=== PATIENT | female | born 1965 | race African-American/Black ===

== ENCOUNTER 2025-05-08 03:29 | Emergency (ER) | payer OTHER, SELFPAY ==
[2025-05-08] VITALS (44 sets, daily range): BP systolic 107–167; BP diastolic 59–93; PULSE 88–107; RESP 16–18; TEMP 36.9–37.4; O2SAT 86–98
--- NOTE | ~2025-05-08 | CT_ITS ---
EXAMINATION: CT abdomen pelvis w con DATE: 05/08/2025 04:36 INDICATION: Generalized abdominal pain. TECHNIQUE: Computed tomography (CT) of the abdomen and pelvis was performed with 100 mL Omnipaque 350 intravenous contrast. Automated exposure control and iterative reconstruction technique were employed. The dose-length product was 753.66 mGy-cm. COMPARISON: None. FINDINGS: The visualized portions of the lung bases demonstrate mild atelectasis. No pleural effusion. Cardiomegaly is noted. No pericardial effusion. There is a small sliding hiatal hernia. There is a 10 mm cyst in the liver. The spleen, pancreas, adrenal glands, and kidneys are normal. The uterus is enlarged with multiple fibroids measuring up to 6.9 cm. There is wall thickening of the sigmoid colon. There are scattered diverticula in the colon. There is fat stranding around the sigmoid colon with small focus of extraluminal gas. The appendix measures 9 mm in diameter. There is a wid[place]outh ventral hernia containing nonobstructed small bowel. There are no pathologically enlarged lymph nodes. There is a small volume of ascites. There is mild thoracic and lumbar spondylosis. IMPRESSION: 1. Sigmoid diverticulitis with microperforation. Malignancy is not excluded. 2. Small volume of ascites. 3. Ventral hernia containing nonobstructed small bowel. 4. Appendiceal diameter of 9 mm, which is indeterminate for appendicitis. 5. Small sliding hiatal hernia. 6. Uterine fibroids. Reviewed, dictated and finalized at location E.
--- OUTSIDE RECORDS SUMMARY | 2025-05-08 03:31 | XMS_ITS | Clinical Summary ---
Author Organization [facility] Address [address] [place] [address] Care Team Providers Care Stone Rubber Name Role Phone Unavailable Primary Care Provider Unavailabl e Social History Tobacco Use Types Packs/Day Years Used Date Smoking Tobacco: Never Assessed Comments Unknown Sex and Gender Information Value Date Recorded Sex Assigned at Not on file Legal Sex Female 1:19 AM PST Gender Identity Not on file Sexual Orientation Not on file Plan of Treatment Not on file
--- OUTSIDE RECORDS SUMMARY | 2025-05-08 03:31 | XMS_ITS | Encounter Summary ---
Author Organization [facility] - [facility] System Address [address] [place] [id number] Care Team Providers Care English Language Learner Teacher Name Role Phone Mariah Terry MD Primary Care Provider Della Asher NP Primary Care Provider [phone] Mariusz Reynoso NP Primary Care Provide r Efren Hargrove MD Primary Care Provider [phone] Encounter Details Date Type Department Care Team (Late st Contact Info) Description 03/20/2021 MyChart Message Enc [facility] Family & Internal Medicine [facility] [id number] [place] [phone] Mariah Terry MD [address] [place] [id number] RE: Test Results Social History Tobacco Use Types Packs/Day Years Used Date Smoking Tobacco: Never Smokeless Tobacco: Never Alcohol Use Standard Drinks/Week Comments Yes 0 (1 standard drink = 0.6 oz pur e alcohol) occasionall Comments No Sex and Gender Information Value Date Recorded Sex Assigned at Female 03/09/2023 4:22 PM CDT Legal Sex Female 4:47 PM CDT Gender Identity Female 06/08/2022 6:12 AM CDT Sexual Orientation Straight 03/09/2023 4: 22 PM CDT Occupation Industry Job Start Date Job End Date SELF EMPLOYED Not on file Not on file Not on file COVID-19 Exposure Response Date Recorded In the last month, have you been in contact with someone who was confirmed or suspected to have Coronavirus / COVID-19? No / Unsure 03/21/2021 2:52 PM CDT documented as of this encounter Plan of Treatment Not on file documented as of this encounter Visit Diagnoses Not on filedocumented in this encounter Care Teams English Language Learner Teacher Relationship Specialty Start Date End Date Mariah Terry MD PCP - General INTERNAL MEDICINE 07/18/18 11/19/22 [place] [address] [address], [address] [place] [phone] PCP - General Nurse Practitioner [facility] 11/20/2210/16 [place] [address] [address], [address] [place], [place] [id number] PCP - General NURSE PRACTITIONER [facility] 10/18/23 03/05/24 [place] [address] [place] [phone] PCP - General INTERNAL MEDICINE 03/06/24 documented as of this encounter
--- OUTSIDE RECORDS SUMMARY | 2025-05-08 03:31 | XMS_ITS | Encounter Summary ---
Author Organization [facility] Address [address] [place] [address] Care Team Providers Care Natural Resources Engineer Name Role Phone Unavailable Primary Care Provider Unavailabl e Prior Encounters Date Type Department Care Team Description 09/04/2019 Converted CPS Chart Documents [facility] [address] [place] [id number] <No scans attached> 09/04/2019 Converted 13x Documents [facility] [address] [place] [phone] <No scans attached> Plan of Treatment Not on file Procedures Procedure Name Priority Date/Time Associated Diagnosis Comments CANCELLED APPOINTMENT Routine 03/23/2017 2:00 AM CDT COMPREHENSIVE ORAL EVALUATION - NEW OR ESTABLISHED PATIENT Routine 02/23/2017 2:00 AM CDT PANORAMIC RADIOGRAPHIC IMAGE Routine 02/23/2017 2:00 AM CDT INTRAORAL - COMPREHENSIVE SERIES OF RADIOGRAPHIC IMAGES Routine 02/23/2017 2:00 AM CDT INTRAORAL PHOTO Routine 02/23/2017 2:00 AM CDT INTRAORAL PHOTO Routine 02/23/2017 2:00 AM CDT INTRAORAL PHOTO Routine 02/23/2017 2:00 AM CDT INTRAORAL PHOTO Routine 02/23/2017 2:00 AM CDT 9 MIDFL COMPOSITE FILLING Routine 2016 2:00 AM CDT 8 MIDFL COMPOSITE FILLING Routine 2016 2:00 AM CDT Visit Diagnoses Not on file
--- NOTE | 2025-05-08 03:39 | ED.ABDPAIN ---
HPI - Abdominal Pain General Chief Complaint: Abdominal Pain <Yemi Luu MD - Last Filed: 05/08/25 03:44> Stated Complaint: abdominal pain <Yemi Luu MD - Last Filed: 05/08/25 03:44> Time Seen by Provider: 05/08/25 03:35 <Yemi Luu MD - Last Filed: 05/08/25 03:44> Source: patient <Yemi Luu MD - Last Filed: 05/08/25 03:44> Mode of arrival: ambulatory <Yemi Luu MD - Last Filed: 05/08/25 03:44> Limitations: no limitations <Yemi Luu MD - Last Filed: 05/08/25 03:44> History of Present Illness HPI narrative: 60-year-old otherwise healthy here with the complaints of diffuse abdominal pain with started 3 days ago. Patient states that initially ibuprofen helped to ease the pain , since last night pain is quite intense , had diarrhea 3 days ago now abdomen is more bloated ,took gasx which made the pain worse . <Yemi Luu MD - Last Filed: 05/08/25 03:44> Onset (ago): day(s) (3) <Yemi Luu MD - Last Filed: 05/08/25 03:44> Pain Consistency: constant <Yemi Luu MD - Last Filed: 05/08/25 03:44> Location: diffuse <Yemi Luu MD - Last Filed: 05/08/25 03:44> Severity: severe <Yemi Luu MD - Last Filed: 05/08/25 03:44> Quality: cramping <MD Flavia Andrade Last Filed: 05/08/25 03:44> Radiation: none <MD Flavia Andrade Last Filed: 05/08/25 03:44> Migration to: no migration <MD Flavia Andrade Last Filed: 05/08/25 03:44> Exacerbating factors: nothing <MD Flavia Andrade Last Filed: 05/08/25 03:44> Relieving factors: nothing <Yemi Luu MD - Last Filed: 05/08/25 03:44> Associated symptoms: denies other symptoms <Yemi Luu MD - Last Filed: 05/08/25 03:44> Treatments prior to arrival: NSAIDs <Yemi Luu MD - Last Filed: 05/08/25 03:44> Related Data Home Medications: Home Medications ?Medication ?Instructions ?Recorded ?Confirmed ?Last Taken ?Type No Home Medications 05/08/25 05/08/25 Unknown History <Yemi Luu MD - Last Filed: 05/08/25 03:44> Allergies/Adverse Reactions: Allergies Allergy/AdvReac Type Severity Reaction Status Date / Time No Known Allergies Allergy Verified 05/08/25 03:40 <Yemi Luu MD - Last Filed: 05/08/25 03:44> Review of Systems Review of Systems: All systems reviewed & are unremarkable except as noted in HPI and below <Yemi Luu MD - Last Filed: 05/08/25 03:44> Constitutional: Constitutional: Reports no additional constitutional complaints <Yemi Luu MD - Last Filed: 05/08/25 03:44> Eyes: Eyes: Reports no additional eye complaints <Yemi Luu MD - Last Filed: 05/08/25 03:44> ENT: Reports system reviewed and no additional complaints, except as documented <Yemi Luu MD - Last Filed: 05/08/25 03:44> Cardiovascular: Cardiovascular: Reports no additional cardiovascular complaints <Yemi Luu MD - Last Filed: 05/08/25 03:44> Respiratory: Respiratory: Reports no additional respiratory complaints <Yemi Luu MD - Last Filed: 05/08/25 03:44> Gastrointestinal: Gastrointestinal: Reports as per HPI <Yemi Luu MD - Last Filed: 05/08/25 03:44> Genitourinary: Genitourinary: Reports no additional female genitourinary complaints <Yemi Luu MD - Last Filed: 05/08/25 03:44> Musculoskeletal: Musculoskeletal: Reports no additional musculoskeletal complaints <Yemi Luu MD - Last Filed: 05/08/25 03:44> Integumentary/Breasts: Skin/Breast: Reports system reviewed and no additional complaints, except as docu <Yemi Luu MD - Last Filed: 05/08/25 03:44> Neurologic: Reports system reviewed and no additional complaints, except as documented <Yemi Luu MD - Last Filed: 05/08/25 03:44> Psychiatric: Psychiatric: Reports no additional psychiatric complaints <Yemi Luu MD - Last Filed: 05/08/25 03:44> Exam Narrative: GENERAL: Well-appearing, well-nourished, and in no acute distress. HEAD: Normocephalic, atraumatic. EYES: PERRLA and EOMI. ENT: Nares clear, no rhinorrhea or epistaxis. Mucous membranes moist. NECK: Supple. CHEST: Clear to auscultation. No respiratory distress. HEART: Regular rate and rhythm. No murmur heard. Normal peripheral pulses. ABDOMEN: distended, diffuse tenderness EXTREMITIES: Normal range of motion. No edema. SKIN: Warm, dry, no rash. NEURO: No focal deficits. Alert and oriented x3. PSYCH: Normal mood and affect. <Yemi Luu MD - Last Filed: 05/08/25 03:44> Course Consultations Consultation #1: DR BRENNAN, HOSPITALIST AT [facility] WHO ACCEPTED PATIENT TRANSFER HER REQUESTED LACTIC ACID PRIOR TO DISCHARGE <Octavio Rothman MD - Last Filed: 05/08/25 09:15> Date: 05/08/25 <Octavio Rothman MD - Last Filed: 05/08/25 09:15> Vital Signs Vital signs: Vital Signs Temperature 36.9 C 05/08/25 03:30 Pulse Rate 88 05/08/25 03:30 Respiratory Rate 18 05/08/25 03:30 Blood Pressure 146/93 H 05/08/25 03:30 Pulse Oximetry 97 05/08/25 03:30 Oxygen Delivery Room Air 05/08/25 03:30 Temperature 36.9 C 05/08/25 06:00 Pulse Rate 103 H 05/08/25 07:00 Respiratory Rate 16 05/08/25 07:00 Blood Pressure 108/76 05/08/25 08:30 Pulse Oximetry 95 05/08/25 08:31 Oxygen Delivery Room Air 05/08/25 07:00 Oxygen Flow Rate 3 05/08/25 06:00 <Yemi Luu MD - Last Filed: 05/08/25 03:44> Vital Signs Temperature 36.9 C 05/08/25 03:30 Pulse Rate 88 05/08/25 03:30 Respiratory Rate 18 05/08/25 03:30 Blood Pressure 146/93 H 05/08/25 03:30 Pulse Oximetry 97 05/08/25 03:30 Oxygen Delivery Room Air 05/08/25 03:30 Temperature 36.9 C 05/08/25 06:00 Pulse Rate 103 H 05/08/25 07:00 Respiratory Rate 16 05/08/25 07:00 Blood Pressure 108/76 05/08/25 08:30 Pulse Oximetry 95 05/08/25 08:31 Oxygen Delivery Room Air 05/08/25 07:00 Oxygen Flow Rate 3 05/08/25 06:00 <Octavio Rothman MD - Last Filed: 05/08/25 09:15> MDM - Abdominal Pain Lab Data Result diagrams: 05/08/25 03:53 05/08/25 03:53 <Yemi Luu MD - Last Filed: 05/08/25 03:44> Labs: Lab Results 05/08/25 Range/Units 03:53 WBC 5.1 (4.8-10.8) K/mm3 RBC 5.00 (4.20-5.40) M/mm3 Hgb 10.2 L (12.0-15.0) g/dL Hct 35.8 (35.0-49.0) % MCV 71.6 L (78.0-102.0) fL MCH 20.4 L (27.0-31.0) pg MCHC 28.5 L (32-36) g/dL RDW 19.5 H (11.6-14.4) % Plt Count 227 (150-420) K/mm3 MPV Not Reportable Immature Gran % (Auto) Not Reportable Neut % (Auto) Not Reportable Lymph % (Auto) Not Reportable [place] % (Auto) Not Reportable Eos % (Auto) Not Reportable Baso % (Auto) Not Reportable Lymph # (Auto) Not Reportable [place] # (Auto) Not Reportable Eos # (Auto) Not Reportable Baso # (Auto) Not Reportable Abs Immat Gran (auto) Not Reportable Absolute Neuts (auto) Not Reportable Absolute Nucleated RBC Not Reportable Neutrophils % (Manual) 75 H (46-73) % Band Neutrophils % 0 (0-6) % Lymphocytes % (Manual) 20 (18-44) % Monocytes % (Manual) 4 (3-9) % Eosinophils % (Manual) 1 (1-6) % Basophils % (Manual) 0 (0-1) % Nucleated RBC % Not Reportable Abs Neuts (Manual) 3.82 (1.3-6.7) K/mm3 Abs Lymphs (Manual) 1.02 L (1.1-4.5) K/mm3 Abs Monocytes (Manual) 0.20 (0.1-0.90) K/mm3 Absolute Eos (Manual) 0.05 (0.02-0.50) K/mm3 Abs Basophils (Manual) 0.00 (0-0.1) K/mm3 Platelet Estimate Adequate (Adequate) % Immature Plt Fraction 6.9 (1.0-7.0) % Schistocytes Not Reportable PT 14.0 H (9.50-12.1) Seconds INR 1.3 Sodium 139 (137-145) mmol/L Potassium 3.4 (3.4-5.0) mmol/L Chloride 102 (98-107) mmol/L Carbon Dioxide 26 (22-30) mmol/L Anion Gap 11 (4-12) mmol/L BUN 7 (7-17) mg/dL Creatinine 0.71 (0.7-1.0) mg/dL Estim Creat Clear Calc 84 ml/min Estimated GFR > 60 (59 - ) Glucose 125 H (65-110) mg/dL Calculated Osmolality 287 (285-295) mOsm/kg Lactic Acid 1.5 (0.4-2.0) mmol/L Calcium 9.3 (8.4-10.2) mg/dL Total Bilirubin 0.9 (0.2-1.3) mg/dL AST 23 (14-36) U/L ALT 11 (6-35) U/L Alkaline Phosphatase 71 (38-126) U/L Total Protein 9.5 H (6.3-8.2) g/dL Albumin 4.3 (3.5-5.1) g/dL Lipase 28 (23-300) U/L <Yemi Luu MD - Last Filed: 05/08/25 03:44> Lab Results 05/08/25 Range/Units 03:53 WBC 5.1 (4.8-10.8) K/mm3 RBC 5.00 (4.20-5.40) M/mm3 Hgb 10.2 L (12.0-15.0) g/dL Hct 35.8 (35.0-49.0) % MCV 71.6 L (78.0-102.0) fL MCH 20.4 L (27.0-31.0) pg MCHC 28.5 L (32-36) g/dL RDW 19.5 H (11.6-14.4) % Plt Count 227 (150-420) K/mm3 MPV Not Reportable Immature Gran % (Auto) Not Reportable Neut % (Auto) Not Reportable Lymph % (Auto) Not Reportable [place] % (Auto) Not Reportable Eos % (Auto) Not Reportable Baso % (Auto) Not Reportable Lymph # (Auto) Not Reportable [place] # (Auto) Not Reportable Eos # (Auto) Not Reportable Baso # (Auto) Not Reportable Abs Immat Gran (auto) Not Reportable Absolute Neuts (auto) Not Reportable Absolute Nucleated RBC Not Reportable Neutrophils % (Manual) 75 H (46-73) % Band Neutrophils % 0 (0-6) % Lymphocytes % (Manual) 20 (18-44) % Monocytes % (Manual) 4 (3-9) % Eosinophils % (Manual) 1 (1-6) % Basophils % (Manual) 0 (0-1) % Nucleated RBC % Not Reportable Abs Neuts (Manual) 3.82 (1.3-6.7) K/mm3 Abs Lymphs (Manual) 1.02 L (1.1-4.5) K/mm3 Abs Monocytes (Manual) 0.20 (0.1-0.90) K/mm3 Absolute Eos (Manual) 0.05 (0.02-0.50) K/mm3 Abs Basophils (Manual) 0.00 (0-0.1) K/mm3 Platelet Estimate Adequate (Adequate) % Immature Plt Fraction 6.9 (1.0-7.0) % Schistocytes Not Reportable PT 14.0 H (9.50-12.1) Seconds INR 1.3 Sodium 139 (137-145) mmol/L Potassium 3.4 (3.4-5.0) mmol/L Chloride 102 (98-107) mmol/L Carbon Dioxide 26 (22-30) mmol/L Anion Gap 11 (4-12) mmol/L BUN 7 (7-17) mg/dL Creatinine 0.71 (0.7-1.0) mg/dL Estim Creat Clear Calc 84 ml/min Estimated GFR > 60 (59 - ) Glucose 125 H (65-110) mg/dL Calculated Osmolality 287 (285-295) mOsm/kg Lactic Acid 1.5 (0.4-2.0) mmol/L Calcium 9.3 (8.4-10.2) mg/dL Total Bilirubin 0.9 (0.2-1.3) mg/dL AST 23 (14-36) U/L ALT 11 (6-35) U/L Alkaline Phosphatase 71 (38-126) U/L Total Protein 9.5 H (6.3-8.2) g/dL Albumin 4.3 (3.5-5.1) g/dL Lipase 28 (23-300) U/L <Octavio Rothman MD - Last Filed: 05/08/25 09:15> Imaging Data Radiologist's impression: ITS Impressions Abdomen/Pelvis CT 05/08/25 09:02 IMPRESSION: 1. Sigmoid diverticulitis with microperforation. Malignancy is not excluded. 2. Small volume of ascites. 3. Ventral hernia containing nonobstructed small bowel. 4. Appendiceal diameter of 9 mm, which is indeterminate for appendicitis. 5. Small sliding hiatal hernia. 6. Uterine fibroids. <Yemi Luu MD - Last Filed: 05/08/25 03:44> ITS Impressions Abdomen/Pelvis CT 05/08/25 09:02 IMPRESSION: 1. Sigmoid diverticulitis with microperforation. Malignancy is not excluded. 2. Small volume of ascites. 3. Ventral hernia containing nonobstructed small bowel. 4. Appendiceal diameter of 9 mm, which is indeterminate for appendicitis. 5. Small sliding hiatal hernia. 6. Uterine fibroids. PARAESOPHAGEAL HERNIA CONTAINING THE PROXIMAL PORTION OF THE STOMACH. SMALL NO FREE FLUID IS SEEN ADJACENT TO THE LIVER HEPATOMEGALY AND HEPATIC STEATOSIS ENLARGEMENT OF THE UTERUS WITH MULTIPLE LIKELY UTERINE FIBROIDS. MASSLIKE WALL THICKENING OF THE SIGMOID COLON WITH FOCI OF EXTRALUMINAL AIR IS SEEN ALONG THE ANTERIOR MARGIN WITH A LOCAL MICROPERFORATION WITHOUT EVIDENCE OF ABSCESS. UNCLEAR IF THIS REPRESENTS A MALIGNANCY VERSUS ACUTE DIVERTICULITIS. ENLARGEMENT OF THE DISTAL APPENDIX MEASURING 9.8 MM ACUTE APPENDICITIS IS NOT EXCLUDED FLUID-FILLED MILDLY DISTAL LOOPS OF SMALL BOWEL ARE SEEN WITHIN THE LEFT ABDOMEN WITHOUT DEFINITE OBSTRUCTION <Octavio Rothman MD - Last Filed: 05/08/25 09:15> Discharge Plan Discharge Clinical Impression: Acute appendicitis, Diverticulitis of colon with perforation <Yemi Luu MD - Last Filed: 05/08/25 03:44> Patient Disposition: Acute Care Hospital <Yemi Luu MD - Last Filed: 05/08/25 03:44> Condition: Stable <Yemi Luu MD - Last Filed: 05/08/25 03:44> Patient Language: Martiniquais <Yemi Luu MD - Last Filed: 05/08/25 03:44> Prescriptions: No Action No Home Medications <Yemi Luu MD - Last Filed: 05/08/25 03:44> Follow-up/Referrals: UNKNOWN,DOCTOR [Primary Care Provider] <Yemi Luu MD - Last Filed: 05/08/25 03:44>
[2025-05-08] MEDS: SODIUM CHLORIDE 0.9% IV 1,000 ML 150 ML IV CONT (03:54)
[2025-05-08] MEDS: ONDANSETRON INJ 4 MG/2 ML VIAL IV PUSH ×2 (03:55→08:18)
[2025-05-08] MEDS: MORPHINE SULFATE (*CRX) 4 MG/ML INJ IV PUSH (03:55)
[2025-05-08 04:00] LABS: Hematocrit 35.8 % (35.0-49.0); Hemoglobin 10.2 g/dL (12.0-15.0); Immature Platelet Fraction Pct 6.9 % (1.0-7.0); Mean Corpuscular HGB Conc 28.5 g/dL (32-36); Mean Corpuscular Hemoglobin 20.4 pg (27.0-31.0); Mean Corpuscular Volume 71.6 fL (78.0-102.0); Platelet Count Result 227 K/mm3 (150-420); Red Blood Count 5.00 M/mm3 (4.20-5.40); White Blood Count 5.1 K/mm3 (4.8-10.8)
--- NOTE | 2025-05-08 04:03 | PC.NURSE ---
IV started and blood work collected, sent to lab. pt medicated per order, see MAR. spouse at bedside. Pt moaning in discomfort, states her stomach is cramping now. Lights dimmed for comfort, call light within reach and pt given 2 warm blankets. update provided.
[2025-05-08 04:11] LABS: Band Neutrophils Percent 0 % (0-6); Basophils Absolute Manual 0.00 K/mm3 (0-0.1); Basophils Percent Manual 0 % (0-1); Eosinophils Absolute Manual 0.05 K/mm3 (0.02-0.50); Eosinophils Percent Manual 1 % (1-6); Lymphocytes Absolute Manual 1.02 K/mm3 (1.1-4.5); Lymphocytes Percent Manual 20 % (18-44); Monocytes Absolute Manual 0.20 K/mm3 (0.1-0.90); Monocytes Percent Manual 4 % (3-9); Neutrophils Absolute Manual 3.82 K/mm3 (1.3-6.7); Neutrophils Percent Manual 75 % (46-73)
--- NOTE | 2025-05-08 04:11 | PC.NURSE ---
pt given a third blanket and a second pillow at this time per hazardous materials waste technician. call light within reach, spouse at bedside.
[2025-05-08 04:12] LABS: Alanine Aminotransferase 11 U/L (6-35); Albumin Level 4.3 g/dL (3.5-5.1); Alkaline Phosphatase 71 U/L (38-126); Anion Gap 11 mmol/L (4-12); Aspartate Amino Transferase 23 U/L (14-36); Bilirubin,Total 0.9 mg/dL (0.2-1.3); Blood Urea Nitrogen 7 mg/dL (7-17); Calcium 9.3 mg/dL (8.4-10.2); Carbon Dioxide 26 mmol/L (22-30); Chloride 102 mmol/L (98-107); Estimated CRCL calculation 84 ml/min; Estimated Glomerular Filt Rate > 60; Glucose 125 mg/dL (65-110); Lipase 28 U/L (23-300); Osmolality Calculated 287 mOsm/kg (285-295); Potassium 3.4 mmol/L (3.4-5.0); Sodium 139 mmol/L (137-145); Total Protein 9.5 g/dL (6.3-8.2)
[2025-05-08 04:13] LABS: INR 1.3; Prothrombin Time 14.0 Seconds (9.50-12.1)
--- NOTE | 2025-05-08 04:18 | PC.NURSE ---
pt to CT scan via wheelchair per electrician radio.
--- NOTE | 2025-05-08 04:30 | PC.NURSE ---
pt returned from imaging. awaiting results. call light within reach, spouse at bedside.
[2025-05-08] MEDS: HYDROmorphone HCL INJ (*CRX) 2 MG/ML VIAL 1 MG IV PUSH (04:59)
--- NOTE | 2025-05-08 05:07 | PC.NURSE ---
update provided. pt spouse at bedside. call light within reach, pt medicated per order, see MAR.
--- NOTE | 2025-05-08 05:17 | PC.NURSE ---
RN to bedside as patient had gotten more comfortable post pain medical practice assistant. nasal cannula applied at 3 lpm as consistent saturations at 86-88%. update provided. spouse at bedside. call light within reach. pt aware of NPO status.
--- NOTE | 2025-05-08 06:26 | PC.NURSE ---
pt checked, reports much improved pain and she was able to rest. spouse remains at bedside. ivf infused. call light within reach. vss.
--- NOTE | 2025-05-08 07:01 | PC.NURSE ---
patient update provided. GRETTA Rothman at bedside and plan of care including CT results discussed with pt and her spouse. Plan for initiation to transfer to higher level of care. per pt preference, try [facility] in [place]. Pt report given to KIT Lassiter for continuation of care on day shift. VSS. call light within reach.
[2025-05-08] MEDS: PIPERACILLIN/TAZOBACTAM SOD 3.375 GM in SODIUM CHLORIDE 0.9% IV 50 ML 100 ML IVPB (07:18)
[2025-05-08] MEDS: HYDROmorphone HCL INJ (*CRX) 2 MG/ML VIAL 0.5 MG IV PUSH (08:17)
== END 2025-05-08 11:56 | disposition short-term general hospital (02) ==
PROVIDERS: Family Medicine; Emergency Provider Emergency Medicine
DX: K35.80 Unspecified acute appendicitis (principal); K57.32 Diverticulitis of large intestine without perforation or abscess without bleeding
CPT/HCPCS: 36415; 74177; 80053; 83605; 83690; 85025; 85055; 85610; 96361; 96365; 96375; 96376; 99285; J1171; J2270; J2405; J2543; J7030; Q9967